=== PATIENT | male | born 1955 | race Two or more races ===

== ENCOUNTER 2022-06-15 14:53 | Inpatient (IN) | payer MEDICARE, MEDICAID ==
[~2022-06-15] VITALS: Ht 175.3 cm; Wt 82.6 kg
[2022-06-15] MEDS ORDERED: IBUPROFEN 400MG TABLET PO ONE (18:30)
[2022-06-15] MEDS ORDERED: SODIUM CHLORIDE 0.9% 1,000 ML IV ONE (18:30)
[2022-06-15] MEDS ORDERED: CEFTRIAXONE 1 G PREMIX 50 ML IV ONE (19:30)
[2022-06-15] MEDS ORDERED: ACETAMINOPHEN 325MG TABLET PO ONE (19:30)
[2022-06-15] MEDS ORDERED: AZITHROMYCIN 500MG/250ML 250 ML IV ONE (19:30)
[2022-06-15 19:49] LABS: BASOPHILS % 0.2 % (0.0-2.0); HEMATOCRIT. 42.2 % (42.0-52.0); HEMOGLOBIN. 14.6 g/dL (14.0-18.0); LYMPHOCYTES % 8.8 % (20.0-50.0); MEAN CORPUSCULAR VOLUME 86.9 fL (80.0-94.0); MEAN PLATELET VOLUME 8.4 fl (7.4-10.4); MONOCYTES % 10.6 % (2.0-8.0); NEUTROPHILS % 80.4 % (40.0-76.0); PLATELET 151 x1000/uL (130-400); RED BLOOD CELL COUNT 4.86 mill/uL (4.7-6.1); RED CELL DISTRIBUTION WIDTH 13.5 % (11.6-14.6)
[2022-06-15 19:56] LABS: CHLORIDE 104 mEq/L (98-107)
[2022-06-15] MEDS: MAGNESIUM OXIDE 400MG TABLET PO SCH (20:00)
[2022-06-15] MEDS ORDERED: POTASSIUM CHLORIDE 20MEQ TABLET SR PO ONE (20:00)
[2022-06-15 20:17] LABS: CLARITY URINE CLEAR (CLEAR); COLOR URINE DARK YELLOW (YELLOW); KETONES URINE 3+ (NEGATIVE); LEUKOCYTE ESTERASE URINE TRACE (NEGATIVE); NITRITE URINE NEGATIVE (NEGATIVE); OCCULT BLOOD URINE 3+ (NEGATIVE); PH URINE 5.5 (4.5-8.0); PROTEIN URINE 3+ (NEGATIVE); SPECIFIC GRAVITY URINE 1.029 (1.005-1.030)
[2022-06-15] MEDS ORDERED: OSELTAMIVIR 75MG CAPSULE PO ONE (20:30)
[2022-06-15] MEDS ORDERED: ONDANSETRON HCL 4MG/2ML INJ IV PRN (23:30)
[2022-06-15] MEDS ORDERED: IPRATROPIUM/ALBUTEROL 0.5-3(2.5)MG/3ML NEB HHN PRN (23:30)
[2022-06-15] MEDS ORDERED: MAGNESIUM/ALUMINUM HYDROXIDE/SIMETHICONE 30ML UDC PO PRN (23:30)
[2022-06-15] MEDS ORDERED: AZITHROMYCIN 500 MG in DEXT 5% WATER 250 ML IV SCH (23:30)
[2022-06-15] MEDS ORDERED: CLONIDINE 0.1MG TABLET PO PRN (23:30)
[2022-06-15] MEDS ORDERED: ACETAMINOPHEN 325MG TABLET PO PRN ×2 (23:30)
[2022-06-15] MEDS ORDERED: DIPHENHYDRAMINE 50MG/ML VIAL IV PRN (23:30)
[2022-06-16] MEDS ORDERED: MVI, ADULT NO.1 10 ML, FOLIC ACID 1 MG, THIAMINE HCL 100 MG in SODIUM CHLORIDE 0.9% 1,0... IV SCH ×4 (01:00)
[2022-06-16] MEDS ORDERED: OSELTAMIVIR 75MG CAPSULE PO NR (02:00)
[2022-06-16] MEDS ORDERED: POTASSIUM CHLORIDE INJ 40 MEQ in DEXT 5% WATER 500 ML IV NR (02:00)
[2022-06-16] MEDS ORDERED: POTASSIUM CHLORIDE 20MEQ TABLET SR PO NR (02:00)
[2022-06-16] MEDS ORDERED: CEFTRIAXONE 1 G PREMIX 50 ML IV NR (02:00)
[2022-06-16] MEDS ORDERED: IBUPROFEN 400MG TABLET PO NR (02:00)
[2022-06-16 08:47] LABS: CHLORIDE 105 mEq/L (98-107)
[2022-06-16 08:48] LABS: BASOPHILS % 0.2 % (0.0-2.0); EOSINOPHILS % 0.1 % (0.0-5.0); HEMOGLOBIN. 14.8 g/dL (14.0-18.0); LYMPHOCYTES % 14.2 % (20.0-50.0); MEAN CORPUSCULAR HEMOGLOBIN 30.1 pg (28.0-32.0); MEAN CORPUSCULAR VOLUME 87.3 fL (80.0-94.0); MEAN PLATELET VOLUME 8.2 fl (7.4-10.4); MONOCYTES % 12.7 % (2.0-8.0); NEUTROPHILS % 72.8 % (40.0-76.0); PLATELET 137 x1000/uL (130-400); RED BLOOD CELL COUNT 4.93 mill/uL (4.7-6.1); RED CELL DISTRIBUTION WIDTH 13.4 % (11.6-14.6)
[2022-06-16 08:56] LABS: PHOSPHORUS 3.1 mg/dL (2.5-4.9)
[2022-06-16] MEDS: MAGNESIUM OXIDE 400MG TABLET PO SCH (09:00)
[2022-06-16] MEDS: OSELTAMIVIR 75MG CAPSULE PO SCH ×2 (09:39→21:03)
[2022-06-16] MEDS: GUAIFENESIN 600MG ER TABLET PO SCH ×2 (09:39→21:03)
[2022-06-16] MEDS ORDERED: DEXTROSE 50% WATER 50ML SYRINGE IV PRN (15:00)
[2022-06-16 15:15] VITALS: BP_SYST 125; BP_SYST 130; BP_DIAS 80; BP_DIAS 82
[2022-06-16] MEDS ORDERED: AZITHROMYCIN 500MG/250ML 250 ML IV NR (15:15)
[2022-06-16] MEDS: BLOOD SUGAR DIAGNOSTIC STRIP TEST SCH ×3 (17:03→21:05)
[2022-06-16] MEDS: INSULIN LISPRO 100 UNITS/ML SUBCUT SCH ×2 (17:23→21:00)
[2022-06-16 20:00] VITALS: BP 123/80
[2022-06-16] MEDS: FAMOTIDINE 20MG TABLET PO SCH (21:03)
[2022-06-17] VITALS: BP 145/60
[2022-06-17 04:00] VITALS: BP 117/74
[2022-06-17] MEDS: BLOOD SUGAR DIAGNOSTIC STRIP TEST SCH ×4 (06:41→21:00)
[2022-06-17] MEDS: INSULIN LISPRO 100 UNITS/ML SUBCUT SCH ×4 (07:50→21:00)
[2022-06-17 08:00] VITALS: BP 116/70
[2022-06-17] MEDS: GUAIFENESIN 600MG ER TABLET PO SCH ×2 (08:54→22:01)
[2022-06-17] MEDS: OLANZAPINE 2.5MG TABLET PO SCH (08:54)
[2022-06-17] MEDS: BENAZEPRIL 5MG TABLET PO SCH (08:55)
[2022-06-17] MEDS: ATENOLOL 25MG TABLET PO SCH (08:55)
[2022-06-17] MEDS: OSELTAMIVIR 75MG CAPSULE PO SCH ×2 (08:56→21:00)
[2022-06-17] MEDS: MAGNESIUM OXIDE 400MG TABLET PO SCH (08:56)
[2022-06-17] MEDS ORDERED: AZITHROMYCIN 500 MG in DEXT 5% WATER 250 ML IV SCH ×2 (09:00→09:30)
[2022-06-17 12:00] VITALS: BP 134/78
[2022-06-17 16:00] VITALS: BP 128/70
[2022-06-17 20:00] VITALS: BP 122/68
[2022-06-17] MEDS: FAMOTIDINE 20MG TABLET PO SCH (22:01)
[2022-06-18] VITALS: BP 122/68
[2022-06-18 04:00] VITALS: BP 135/65
[2022-06-18] MEDS: BLOOD SUGAR DIAGNOSTIC STRIP TEST SCH ×4 (07:49→20:21)
[2022-06-18] MEDS: INSULIN LISPRO 100 UNITS/ML SUBCUT SCH ×4 (07:49→20:21)
[2022-06-18 08:00] VITALS: BP 141/77
[2022-06-18] MEDS: OLANZAPINE 2.5MG TABLET PO SCH (08:50)
[2022-06-18] MEDS: OSELTAMIVIR 75MG CAPSULE PO SCH ×2 (08:50→19:53)
[2022-06-18] MEDS: GUAIFENESIN 600MG ER TABLET PO SCH ×2 (08:50→19:53)
[2022-06-18] MEDS: BENAZEPRIL 5MG TABLET PO SCH (08:51)
[2022-06-18] MEDS: MAGNESIUM OXIDE 400MG TABLET PO SCH (08:51)
[2022-06-18] MEDS: ATENOLOL 25MG TABLET PO SCH (08:51)
[2022-06-18] MEDS ORDERED: AZITHROMYCIN 500 MG in DEXT 5% WATER 250 ML IV SCH (11:00)
[2022-06-18 12:00] VITALS: BP 146/75
[2022-06-18 16:00] VITALS: BP 132/83
[2022-06-18] MEDS: FAMOTIDINE 20MG TABLET PO SCH (19:53)
[2022-06-18 20:46] VITALS: BP 110/85
[2022-06-19] MEDS ORDERED: AZITHROMYCIN 500 MG TABLET PO SCH (09:00)
== END 2022-06-18 21:30 | DRG 871 ==
LOC: ER 14:53 → MICUSO 20:46 → EDBEDREQ 20:54 → EDBEDREQTM 20:54 → 6EST 06-16 16:42
PROVIDERS: ADMIT Internal Medicine; ATTEND Internal Medicine
DX: A41.9 Sepsis, unspecified organism (principal); J10.00 Influenza due to other identified influenza virus with unspecified type of pneumonia; J18.9 Pneumonia, unspecified organism; N39.0 Urinary tract infection, site not specified; F84.0 Autistic disorder; E11.9 Type 2 diabetes mellitus without complications; Z20.822 Contact with and (suspected) exposure to COVID-19; E87.6 Hypokalemia; I10 Essential (primary) hypertension
CPT/HCPCS: 36415; 70551; 71045; 80048; 80053; 81003; 82962; 83036; 83605; 83735; 84100; 85025; 87426; 87804; 93005; 97116; 97162; 97166; 97530; 97535; 99285; A6261; C1893; C9803; J0456; J0696; J1815; J3411; J3480; J3490; J7030; J7060

== ENCOUNTER 2022-06-18 21:54 | Inpatient (IN) | payer MEDICARE, MEDICAID ==
[~2022-06-18] VITALS: Ht 175.3 cm; Wt 82.5 kg
[2022-06-18 21:35] VITALS: BP 136/74
[2022-06-18 21:40] VITALS: BP 136/74
[2022-06-18] MEDS ORDERED: ACETAMINOPHEN 325MG TABLET PO PRN (22:45)
[2022-06-18] MEDS ORDERED: CLONIDINE 0.1MG TABLET PO PRN (22:45)
[2022-06-18] MEDS ORDERED: MAGNESIUM/ALUMINUM HYDROXIDE/SIMETHICONE 30ML UDC PO PRN (22:45)
[2022-06-18] MEDS ORDERED: DIPHENHYDRAMINE 50MG CAPSULE PO PRN (22:45)
[2022-06-18] MEDS ORDERED: IPRATROPIUM/ALBUTEROL 0.5-3(2.5)MG/3ML NEB HHN PRN (22:45)
[2022-06-18] MEDS ORDERED: ONDANSETRON HCL 4MG TABLET PO PRN (22:45)
[2022-06-19] VITALS: BP 132/75
[2022-06-19 06:58] LABS: BASOPHILS % 0.3 % (0.0-2.0); EOSINOPHILS % 2.1 % (0.0-5.0); HEMATOCRIT. 38.2 % (42.0-52.0); HEMOGLOBIN. 13.3 g/dL (14.0-18.0); MEAN CORPUSCULAR HEMOGLOBIN 30.1 pg (28.0-32.0); MEAN CORPUSCULAR VOLUME 86.7 fL (80.0-94.0); MEAN PLATELET VOLUME 8.7 fl (7.4-10.4); MONOCYTES % 12.8 % (2.0-8.0); NEUTROPHILS % 51.8 % (40.0-76.0); PLATELET 148 x1000/uL (130-400); RED BLOOD CELL COUNT 4.41 mill/uL (4.7-6.1); RED CELL DISTRIBUTION WIDTH 13.3 % (11.6-14.6)
[2022-06-19 07:06] LABS: CHLORIDE 108 mEq/L (98-107)
[2022-06-19 08:00] VITALS: BP 132/78
[2022-06-19] MEDS: MAGNESIUM OXIDE 400MG TABLET PO SCH (09:00)
[2022-06-19] MEDS: OLANZAPINE 2.5MG TABLET PO SCH (09:13)
[2022-06-19] MEDS: GUAIFENESIN 600MG ER TABLET PO SCH ×2 (09:14→21:20)
[2022-06-19] MEDS: ATENOLOL 25MG TABLET PO SCH (09:14)
[2022-06-19] MEDS: BENAZEPRIL 5MG TABLET PO SCH (09:14)
[2022-06-19] MEDS: AZITHROMYCIN 500 MG TABLET PO SCH (09:15)
[2022-06-19] MEDS: OSELTAMIVIR 75MG CAPSULE PO SCH ×2 (10:15→21:20)
[2022-06-19 19:45] VITALS: BP 138/76
[2022-06-19] MEDS: FAMOTIDINE 20MG TABLET PO SCH (21:20)
[2022-06-20 08:00] VITALS: BP 140/84
[2022-06-20] MEDS: MAGNESIUM OXIDE 400MG TABLET PO SCH (09:00)
[2022-06-20] MEDS: OLANZAPINE 2.5MG TABLET PO SCH (09:44)
[2022-06-20] MEDS: GUAIFENESIN 600MG ER TABLET PO SCH ×2 (09:44→20:55)
[2022-06-20] MEDS: OSELTAMIVIR 75MG CAPSULE PO SCH ×2 (09:45→20:55)
[2022-06-20] MEDS: BENAZEPRIL 5MG TABLET PO SCH (09:45)
[2022-06-20] MEDS: AZITHROMYCIN 500 MG TABLET PO SCH (09:45)
[2022-06-20] MEDS: ATENOLOL 25MG TABLET PO SCH (09:45)
[2022-06-20 20:00] VITALS: BP 139/84
[2022-06-20] MEDS: FAMOTIDINE 20MG TABLET PO SCH (20:54)
[2022-06-21 08:00] VITALS: BP 155/76
[2022-06-21 08:14] VITALS: BP 143/85
[2022-06-21] MEDS: OSELTAMIVIR 75MG CAPSULE PO SCH ×2 (08:34→20:49)
[2022-06-21] MEDS: GUAIFENESIN 600MG ER TABLET PO SCH ×2 (08:34→20:49)
[2022-06-21] MEDS: OLANZAPINE 2.5MG TABLET PO SCH (08:34)
[2022-06-21] MEDS: AZITHROMYCIN 500 MG TABLET PO SCH (08:34)
[2022-06-21] MEDS: ATENOLOL 25MG TABLET PO SCH (08:34)
[2022-06-21] MEDS: MAGNESIUM OXIDE 400MG TABLET PO SCH (08:35)
[2022-06-21] MEDS: BENAZEPRIL 5MG TABLET PO SCH (08:35)
[2022-06-21] MEDS ORDERED: POTASSIUM CHLORIDE 20MEQ TABLET SR PO SCH (10:00)
[2022-06-21 20:00] VITALS: BP 110/60
[2022-06-21] MEDS: FAMOTIDINE 20MG TABLET PO SCH (20:49)
[2022-06-22 08:00] VITALS: BP 117/81
[2022-06-22] MEDS: OSELTAMIVIR 75MG CAPSULE PO SCH ×2 (09:01→21:42)
[2022-06-22] MEDS: AZITHROMYCIN 500 MG TABLET PO SCH (09:01)
[2022-06-22] MEDS: GUAIFENESIN 600MG ER TABLET PO SCH ×2 (09:02→21:42)
[2022-06-22] MEDS: ATENOLOL 25MG TABLET PO SCH (09:02)
[2022-06-22] MEDS: MAGNESIUM OXIDE 400MG TABLET PO SCH (09:02)
[2022-06-22] MEDS: BENAZEPRIL 5MG TABLET PO SCH (09:03)
[2022-06-22] MEDS: OLANZAPINE 2.5MG TABLET PO SCH (09:03)
[2022-06-22 19:51] VITALS: BP 136/80
[2022-06-22] MEDS: FAMOTIDINE 20MG TABLET PO SCH (21:42)
[2022-06-23 08:00] VITALS: BP 142/84
[2022-06-23] MEDS: AZITHROMYCIN 500 MG TABLET PO SCH (09:53)
[2022-06-23] MEDS: GUAIFENESIN 600MG ER TABLET PO SCH ×2 (09:53→20:37)
[2022-06-23] MEDS: OSELTAMIVIR 75MG CAPSULE PO SCH ×2 (09:53→20:37)
[2022-06-23] MEDS: OLANZAPINE 2.5MG TABLET PO SCH (09:53)
[2022-06-23] MEDS: MAGNESIUM OXIDE 400MG TABLET PO SCH (09:53)
[2022-06-23] MEDS: BENAZEPRIL 5MG TABLET PO SCH (09:54)
[2022-06-23] MEDS: ATENOLOL 25MG TABLET PO SCH (09:55)
[2022-06-23 19:54] VITALS: BP 145/91
[2022-06-23] MEDS: FAMOTIDINE 20MG TABLET PO SCH (20:37)
[2022-06-24 08:00] VITALS: BP 140/83
[2022-06-24] MEDS: GUAIFENESIN 600MG ER TABLET PO SCH ×2 (09:05→20:50)
[2022-06-24] MEDS: ATENOLOL 25MG TABLET PO SCH (09:06)
[2022-06-24] MEDS: AZITHROMYCIN 500 MG TABLET PO SCH (09:07)
[2022-06-24] MEDS: OLANZAPINE 2.5MG TABLET PO SCH (09:07)
[2022-06-24] MEDS: MAGNESIUM OXIDE 400MG TABLET PO SCH (09:08)
[2022-06-24] MEDS: BENAZEPRIL 5MG TABLET PO SCH ×2 (09:08→20:52)
[2022-06-24 20:00] VITALS: BP 129/75
[2022-06-24] MEDS: FAMOTIDINE 20MG TABLET PO SCH (20:50)
[2022-06-25 08:00] VITALS: BP 144/86
[2022-06-25] MEDS: MAGNESIUM OXIDE 400MG TABLET PO SCH (08:19)
[2022-06-25] MEDS: OLANZAPINE 2.5MG TABLET PO SCH (08:19)
[2022-06-25] MEDS: ATENOLOL 25MG TABLET PO SCH (08:19)
[2022-06-25] MEDS: GUAIFENESIN 600MG ER TABLET PO SCH ×2 (08:19→20:42)
[2022-06-25 19:41] VITALS: BP 146/80
[2022-06-25] MEDS: FAMOTIDINE 20MG TABLET PO SCH (20:42)
[2022-06-26 08:00] VITALS: BP 142/87
[2022-06-26] MEDS: ATENOLOL 25MG TABLET PO SCH (09:25)
[2022-06-26] MEDS: OLANZAPINE 2.5MG TABLET PO SCH (09:25)
[2022-06-26] MEDS: GUAIFENESIN 600MG ER TABLET PO SCH ×2 (09:26→21:53)
[2022-06-26] MEDS: BENAZEPRIL 5MG TABLET PO SCH (09:26)
[2022-06-26] MEDS: MAGNESIUM OXIDE 400MG TABLET PO SCH (09:27)
[2022-06-26] MEDS ORDERED: DIPHENHYDRAMINE 25MG CAPSULE PO PRN (12:04)
[2022-06-26] MEDS ORDERED: DEXTROSE 50% WATER 50ML SYRINGE IV PRN (16:15)
[2022-06-26] MEDS: BLOOD SUGAR DIAGNOSTIC STRIP TEST SCH ×2 (16:49→21:46)
[2022-06-26] MEDS: INSULIN LISPRO 100 UNITS/ML SUBCUT SCH ×2 (16:54→21:54)
[2022-06-26] MEDS: BENAZEPRIL 10MG TABLET PO SCH (18:02)
[2022-06-26 20:00] VITALS: BP 135/74
[2022-06-26] MEDS: FAMOTIDINE 20MG TABLET PO SCH (21:53)
[2022-06-26 22:47] VITALS: BP 135/74
[2022-06-27] MEDS: BLOOD SUGAR DIAGNOSTIC STRIP TEST SCH ×2 (06:26→11:27)
[2022-06-27] MEDS: INSULIN LISPRO 100 UNITS/ML SUBCUT SCH ×2 (08:15→12:06)
[2022-06-27] MEDS ORDERED: ATENOLOL 50 MG TABLET PO SCH (09:00)
[2022-06-27] MEDS ORDERED: METFORMIN HCL 500MG TABLET PO SCH (09:00)
[2022-06-27] MEDS: BENAZEPRIL 10MG TABLET PO SCH (09:52)
[2022-06-27] MEDS: GUAIFENESIN 600MG ER TABLET PO SCH (09:53)
[2022-06-27] MEDS: OLANZAPINE 2.5MG TABLET PO SCH (09:53)
[2022-06-27] MEDS: MAGNESIUM OXIDE 400MG TABLET PO SCH (09:54)
[2022-06-27 12:02] VITALS: BP 131/78
== END 2022-06-27 13:25 | disposition home or self-care (01) | DRG 193 ==
PROVIDERS: ADMIT Psychiatry & Neurology Neurology; ATTEND Internal Medicine
DX: J11.00 Influenza due to unidentified influenza virus with unspecified type of pneumonia (principal); A41.9 Sepsis, unspecified organism; F84.0 Autistic disorder; E11.9 Type 2 diabetes mellitus without complications; E87.6 Hypokalemia; F39 Unspecified mood [affective] disorder; F79 Unspecified intellectual disabilities; I10 Essential (primary) hypertension; R56.9 Unspecified convulsions; R00.0 Tachycardia, unspecified; R53.81 Other malaise; Z79.899 Other long term (current) drug therapy
CPT/HCPCS: 36415; 80048; 82962; 85025; 92523; 93970; 94640; 97110; 97116; 97162; 97166; 97530; 97535; J1815